=== PATIENT | male | born 1980 | race Caucasian/White ===

== ENCOUNTER → 2020-09-17 11:07 | Outpatient (CLI) | payer OTHER, SELFPAY ==
[2020-09-17 23:58] LABS: SARS-CoV-2 RNA PCR Negative
== END ==
PROVIDERS: PCP Family Medicine; Visit Provider Nurse Practitioner Family
DX: R68.89 Other general symptoms and signs (principal); Z20.822 Contact with and (suspected) exposure to COVID-19
CPT/HCPCS: C9803; U0003; U0005

== ENCOUNTER 2022-10-17 11:15 | Emergency (ER) | payer OTHER, SELFPAY ==
[2022-10-17 11:37] VITALS: BP 115/76; PULSE 96; RESP 16; TEMP 36.7; O2SAT 96
--- NOTE | 2022-10-17 11:52 | ED.WOUNDLAC ---
HPI - Wound/Laceration General Chief Complaint: Wound/Laceration Stated Complaint: finger laceration (rt hand) Time Seen by Provider: 10/17/22 11:40 Source: patient Mode of arrival: ambulatory Limitations: no limitations History of Present Illness HPI narrative: Mr. Garcia is a 42-year-old male patient presenting to the clinic today with complaints of a finger laceration to the 4th distal finger of the right hand. He reports he was moving a black stone grill from a camper and the propane hose was still attached and this caused him to drop the grill and cut his finger. Tetanus is unknown. States this happened earlier this morning and he is unable to get the bleeding to stop. Related Data Allergies Allergy/AdvReac Type Severity Reaction Status Date / Time No Known Allergies Allergy Verified 10/17/22 11:41 Review of Systems Review of Systems: Pertinent positives per HPI. Patient denies any fever, chills, rash, headache, visual changes, dizziness, cough, shortness of breath, chest pain, palpitations, nausea, vomiting, diarrhea, constipation, abdominal pain, or any urinary issues. 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 There is no relevant family history pertinent to the patient complaint. Exam Narrative: General: Well-developed, well nourished, in no apparent distress Head: Normocephalic, atraumatic. Cardio: Regular rate and rhythm, s1 and s2 normal, no murmur appreciated. Resp: Clear to auscultation bilaterally, no rhonchi, rales, wheezing or rubs. Integumentary: [place], warm, and dry, intact without lesion, dime sized skin avulsion to the right distal 4th volar aspect of the finger without nail involvement-bleeding not controlled Course Course Emergency Course: Portions of this record may have been created with voice recognition software. Level of Care: Express Care Visit Vital Signs Vital signs: Vital Signs Temperature 36.7 C 10/17/22 11:37 Pulse Rate 96 10/17/22 11:37 Respiratory Rate 16 10/17/22 11:37 Blood Pressure 115/76 10/17/22 11:37 Pulse Oximetry 96 10/17/22 11:37 Oxygen Delivery Room Air 10/17/22 11:37 Temperature 36.7 C 10/17/22 11:37 Pulse Rate 96 10/17/22 11:37 Respiratory Rate 16 10/17/22 11:37 Blood Pressure 115/76 10/17/22 11:37 Pulse Oximetry 96 10/17/22 11:37 Oxygen Delivery Room Air 10/17/22 11:37 Vital signs reviewed Procedures Laceration Laceration 1: Date: 10/17/22 Site: hand (Distal 4th finger) Side (If applicable): right Description: other (dime sized skin avulsion) Depth: simple, single layer Local Anesthetic: lidocaine 1% Amount of anesthesia used (mL): 1 Pre-repair: wound explored and irrigated ====== Skin Level ====== ====== Subcutaneous Layer ====== ====== Muscle Layer ====== ====== Tendon Layer ====== Dressing: Verbal consent obtained for laceration repair. Risk and benefits explained and patient voiced understanding. Area was cleansed with dermawash and a 25 gauge needle was th
[2022-10-17] MEDS: TETANUS,DIPHTHERIA,AC PERTUSSIS ADULT (0.5 ML) BOOSTRIX IM (12:11)
== END 2022-10-17 12:27 | disposition home or self-care (01) ==
PROVIDERS: Emergency Provider Nurse Practitioner Family; PCP Family Medicine
DX: S61.204A Unspecified open wound of right ring finger without damage to nail, initial encounter (principal); W45.8XXA Other foreign body or object entering through skin, initial encounter; Z23 Encounter for immunization
CPT/HCPCS: 90471; 90715; 99212; G0463

== ENCOUNTER 2023-09-17 09:55 | Outpatient (CLI) | payer OTHER, SELFPAY ==
--- NOTE | ~2023-09-17 | XR_ITS ---
Clinical Indication: Chronic cough PA and lateral views of the chest: Comparison: None Findings: The lungs are clear, without evidence of focal consolidation or pleural effusion. Cardiome diastinal silhouette is within normal limits. Bones and soft tissues are unremarkable. Impression: Normal chest. Reviewed, dictated and finalized at location . Impression: Normal chest.
== END 2023-09-17 09:56 | disposition home or self-care (01) ==
LOC: ANHIMG 09:56
PROVIDERS: PCP Family Medicine; Visit Provider Nurse Practitioner Family
DX: R05.3 Chronic cough (principal)
CPT/HCPCS: 71046

== ENCOUNTER 2024-11-17 10:41 | Outpatient (CLI) | payer OTHER, SELFPAY ==
--- NOTE | ~2024-11-17 | US_ITS ---
Abdominal Sonogram: Real-time sonographic imaging of the abdomen was performed. Clinical History: Abnormal liver enzyme levels Findings: The liver appears echogenic, with no evidence of mass lesion or bile duct dilatation. Main portal vein demonstrates normal direction of flow. The spleen is normal in size without evidence of focal lesion. The gallbladder is absent, compatible with prior cholecystectomy. The common bile duct measures 4 mm. The visualized pancreas, aorta, and IVC are unremarkable. The right kidney measures 11.5 cm in length and the left kidney measures 12.5 cm. There is no hydronephrosis or renal calculu s. Impression: Diffuse fatty infiltration of the liver. Status post cholecystectomy. Reviewed, dictated and finalized at location . Impression: Diffuse fatty infiltration of the liver. Status post cholecystectomy.
== END 2024-11-17 10:42 | disposition home or self-care (01) ==
LOC: MICIMG 11-18 10:41
PROVIDERS: PCP Family Medicine; Visit Provider Nurse Practitioner Adult Health
DX: R74.01 Elevation of levels of liver transaminase levels (principal); K76.0 Fatty (change of) liver, not elsewhere classified; Z90.49 Acquired absence of other specified parts of digestive tract
CPT/HCPCS: 76700